=== PATIENT | female | born 1985 | race Caucasian/White ===

== ENCOUNTER 2019-07-28 00:20 | Inpatient (IN) | payer OTHER ==
[2019-07-28] MEDS ORDERED: PRENATAL VITAM1 EACH PO (03:14)
--- NOTE | 2019-07-28 12:56 | PR ---
[facility] [address] [facility] [place], [place] [address] Signed PP Progress Notes Datetime Report Generated by CPN: 07/28/2019 12:55 SUBJECTIVE: [id number] Pain: Within normal limits Nausea/Vomiting: Denies Vital Signs: [id number] Vital Signs: Reviewed; Within Normal Limits EXAM: [id number] Abdomen/Uterus: Normal Lochia: Normal Extremities: Normal IMPRESSION/PLAN/PROCEDURES: [id number] Impression: Normal progression Plan: Continue present management Procedures: None Progress Notes: Doing well, without complalint. Signing Physician: Tammi Andrews MD Copies: ~ *Electronically Signed* 07/28/19 1255 TAMMI ANDREWS MD PATIENT NAME: RAY COSTELLO PROGRESS NOTE DATE OF : 87 PHYSICIAN: TAMMI ANDREWS MD RPT #: [id number] REPORT IS CONFIDENTIAL AND NOT TO BE RELEASED WITHOUT AUTHORIZATION
--- NOTE | 2019-07-28 12:56 | PR ---
[facility] [address] [facility] [place], [place] [address] Signed PP Progress Notes Datetime Report Generated by CPN: 07/28/2019 12:56 SUBJECTIVE: [id number] Pain: Within normal limits Nausea/Vomiting: Denies Vital Signs: [id number] Vital Signs: Reviewed; Within Normal Limits EXAM: [id number] Abdomen/Uterus: Normal Lochia: Normal Extremities: Normal IMPRESSION/PLAN/PROCEDURES: [id number] Impression: Normal progression Plan: Continue present management Procedures: None Progress Notes: Doing well, without complalint. Signing Physician: Tammi Andrews MD Copies: ~ *Electronically Signed* 07/28/19 1256 TAMMI ANDREWS MD PATIENT NAME: RAY COSTELLO PROGRESS NOTE DATE OF : 87 PHYSICIAN: TAMMI ANRDEWS MD RPT #: [id number] REPORT IS CONFIDENTIAL AND NOT TO BE RELEASED WITHOUT AUTHORIZATION
--- NOTE | 2019-07-29 09:58 | PR ---
[facility] [address] [facility] [place] [address] Signed PP Progress Notes Datetime Report Generated by CPN: 07/29/2019 09:58 SUBJECTIVE: [id number] Pain: Within normal limits Nausea/Vomiting: Denies Vital Signs: [id number] Vital Signs: Reviewed; Within Normal Limits Notable Details: PP Hgb/HCt = 11.6/33.6 EXAM: [id number] Abdomen/Uterus: Normal Lochia: Normal Extremities: Normal IMPRESSION/PLAN/PROCEDURES: [id number] Impression: Normal progression Plan: Discharge Procedures: None Progress Notes: Doing well, without complalint, would like to go home. Signing Physician: Tammi Andrews MD Copies: ~ *Electronically Signed* 07/29/19 0958 TAMMI ANDREWS MD PATIENT NAME: RAY COSTELLO PROGRESS NOTE DATE OF : 87 PHYSICIAN: TAMMI ANDREWS MD RPT #: [id number] REPORT IS CONFIDENTIAL AND NOT TO BE RELEASED WITHOUT AUTHORIZATION
== END 2019-07-29 13:00 | disposition home or self-care (01) | DRG 807 ==
LOC: FBCO 00:20 → FBC 00:55
PROVIDERS: ADMIT General Practice
PROC: 10E0XZZ Delivery of Products of Conception, External Approach (ICD-10-PCS; principal; 2019-07-28)
PROC: 0UQMXZZ Repair Vulva, External Approach (ICD-10-PCS; 2019-07-28)
PROC: 00HU33Z Insertion of Infusion Device into Spinal Canal, Percutaneous Approach (ICD-10-PCS; 2019-07-28)
PROC: 3E0R3BZ Introduction of Anesthetic Agent into Spinal Canal, Percutaneous Approach (ICD-10-PCS; 2019-07-28)
DX: O71.82 Other specified trauma to perineum and vulva (principal); Z37.0 Single live birth; Z3A.39 39 weeks gestation of pregnancy; Z87.891 Personal history of nicotine dependence; Z86.19 Personal history of other infectious and parasitic diseases
CPT/HCPCS: 01960; 36415; 85027; J2590; J2795; J3010; J7120